=== PATIENT | female | born 1950 | race Hispanic/Latino ===

== ENCOUNTER 2017-09-18 13:28 | Outpatient (CLI) | payer MEDICARE ==
--- NOTE | 2017-09-18 14:40 | XRay Report ---
XRAY RIGHT HIP TWO VIEWS: 09/18/17 13:28:00 CLINICAL: Right hip pain. FINDINGS: Status post right total hip replacement with normal appearance of the prosthesis. No fracture or dislocation. Mild osteopenia. Moderate osteoarthritis of the left hip. Normal soft tissues. The pelvic bones are intact. The SI joints are normal. IMPRESSION: Status post right total hip replacement. Osteoarthritis of the left hip.
== END 2017-09-18 13:29 | disposition home or self-care (01) ==
LOC: SPVIMAG 13:28
PROVIDERS: ATTEND Orthopaedic Surgery Sports Medicine
DX: M85.88 Other specified disorders of bone density and structure, other site (principal); M16.12 Unilateral primary osteoarthritis, left hip; Z96.641 Presence of right artificial hip joint

== ENCOUNTER 2017-12-09 07:27 | Outpatient (CLI) | payer MEDICARE ==
--- NOTE | 2017-12-09 12:06 | XRay Report ---
XRAY RIGHT HIP TWO VIEWS: 12/09/17 07:27:00 CLINICAL: Right hip pain. COMPARISON: 09/18/17 FINDINGS: Status post total joint replacement with normal appearance of the prosthesis. No apparently seen. No fracture or dislocation. Mild osteopenia. Moderate osteoarthritis of the left hip. IMPRESSION: Status post right total hip replacement. No change compared to the prior exam.
== END 2017-12-09 07:28 | disposition home or self-care (01) ==
LOC: SPVIMAG 07:27
PROVIDERS: ATTEND Orthopaedic Surgery Sports Medicine
DX: M16.12 Unilateral primary osteoarthritis, left hip (principal); M85.88 Other specified disorders of bone density and structure, other site; Z96.641 Presence of right artificial hip joint